=== PATIENT | male | born 1995 | race Caucasian/White ===

== ENCOUNTER 2020-02-16 07:06 | Emergency (ER) | payer OTHER ==
[2020-02-16] MEDS ORDERED: Acetaminophen 500 MG TAB ONE (08:19)
--- NOTE | 2020-02-16 08:30 | RAD ---
PORTABLE CHEST: DATE: 02/16/2020. PROVIDED CLINICAL HISTORY: Fever. FINDINGS: No comparisons. Cardiac and mediastinal silhouette is within normal limits. No focal consolidation, pleural fluid, or pneumothorax apparent. IMPRESSION: No evidence for an acute cardiopulmonary process. POS: [facility]
[2020-02-17 12:18] LABS: SARS-CoV-2 MS2 Positive; SARS-CoV-2 N Gene Negative; SARS-CoV-2 S Gene Negative; SARS-CoV-2 orf1ab Negative
== END 2020-02-16 09:32 | disposition home or self-care (01) ==
LOC: ERS 07:06
DX: J02.9 Acute pharyngitis, unspecified (principal); Z20.828 Contact with and (suspected) exposure to other viral communicable diseases
CPT/HCPCS: 71045; 87081; 87430; 87635; U0003